=== PATIENT | female | born 1965 | race Caucasian/White ===

== ENCOUNTER 2016-07-05 05:42 | Day surgery (SDC) | payer OTHER ==
[2016-07-05] MEDS ORDERED: Lactated Ringers 1,000 ML IV SCH (06:30)
[2016-07-05] MEDS ORDERED: DIPRIVAN 200 MG/20 ML IV ONE (08:00)
[2016-07-05] MEDS ORDERED: Ketamine HCl 50 MG/ML IV ONE (08:00)
[2016-07-05 08:45] VITALS: BP 140/97; PULSE 93; O2SAT 98
--- NOTE | 2016-07-05 09:26 | OP ---
SURGERY DATE/TIME: 07/05/2016 0705 PREOPERATIVE DIAGNOSES: 1) Diverticulosis. 2) History of diverticular abscess. POSTOPERATIVE DIAGNOSES: 1) Sigmoid diverticulosis. 2) Sigmoid colon polyp x3. PROCEDURE: Colonoscopy. SURGEON: Cortes Ortiz M.D. ANESTHESIA: MAC by Mak Dillard CRNA. ESTIMATED BLOOD LOSS: Minimal. SPECIMENS: One hot forceps polypectomy sigmoid colon polyp and two cold forceps polypectomy sigmoid colon polyp. DESCRIPTION OF PROCEDURE: After informed written consent was obtained, the patient was taken to the endoscopy suite. She underwent monitored anesthesia and digital rectal exam showed normal sphincter tone and no internal lesions. The scope was inserted in the rectum and sequentially the entire colonic mucosa was traversed. The level of cecum was reached and verified with direct visualization of ileocecal valve. Upon withdrawal no obvious mucosal abnormalities were identified until the level of the sigmoid colon. The sigmoid colon did have scattered diverticula throughout the entire length with no obvious bleeding or other suspicious lesions. There were three polyps in the sigmoid colon. The largest was removed with hot forceps. Two very small sessile polyps were removed in their entirety with cold forceps with minimal bleeding. The remainder of the exam was unremarkable. Retroflexion was performed prior to withdrawal. The scope was removed and the patient was transferred to the recovery room in excellent condition. She is advised to follow up for pathology results in a week.
== END 2016-07-05 08:55 | disposition home or self-care (01) ==
LOC: SDC 05:42
PROVIDERS: ATTEND Family Medicine
PROC: 0DBN8ZX Excision of Sigmoid Colon, Via Natural or Artificial Opening Endoscopic, Diagnostic (ICD-10-PCS; principal; 2016-07-05)
PROC: 0DBN8ZZ Excision of Sigmoid Colon, Via Natural or Artificial Opening Endoscopic (ICD-10-PCS; 2016-07-05)
DX: K57.30 Diverticulosis of large intestine without perforation or abscess without bleeding (principal); D12.5 Benign neoplasm of sigmoid colon; I10 Essential (primary) hypertension
CPT/HCPCS: 00810; 36415; 88305; J2704

== ENCOUNTER 2017-03-02 12:44 | Inpatient (IN) | payer OTHER ==
[2017-03-02] MEDS ORDERED: Zofran 4 MG/2 ML VIAL IV PRN (13:17)
[2017-03-02] MEDS ORDERED: Lactated Ringers 1,000 ML IV SCH (13:30)
[2017-03-02] MEDS: Zosyn 3.375GM/100 Ml D5W 3.375 GM/100 ML IVPB IV SCH ×2 (14:11→18:34)
[2017-03-02 14:18] LABS: Mean Cell Volume 97.5 fl (78-100); Mean Corpuscular Hemoglobin 32.3 pg (26-32); Mean Platelet Volume 9.9 fl (6-9.5); Platelet Count 500 K/mm3 (150-450); Red Blood Count 3.62 M/mm3 (4.1-5.4); Red Cell Distribution Width 11.3 % (11.5-14.0); White Blood Count 16.7 K/mm3 (4.0-10.5)
[2017-03-02] MEDS: MORPHINE SULFATE 4 MG INJ IV PRN ×2 (14:26→18:42)
[2017-03-02 14:47] LABS: ALBUMIN 2.2 g/dL (3.4-5.0); ALKALINE PHOSPHATASE 115 U/L (46-116); ANION GAP 15.6 MEQ/L (5-15); BLOOD UREA NITROGEN 4 mg/dL (9-20); CHLORIDE 90 mEq/L (98-107); Carbon Dioxide 27.6 mEq/L (21-32); Glucose 106 MG/DL (70-110); SGOT/AST 43 U/L (15-37); SGPT/ALT 28 U/L (12-78); SODIUM 131 mEq/L (136-145); Total Protein 7.4 gm/dL (6.4-8.2)
[2017-03-02 14:49] LABS: Potassium 2.5 mEq/L (3.5-5.1)
[2017-03-02 15:00] LABS: BAND 14 % (0.0-2.0); Platelet Estimate INCREASED (NORMAL); Total Cells Counted 100
[2017-03-02 15:01] LABS: Hypochromia 1+; Polychromasia RARE
[2017-03-02] MEDS: Lactated Ringers 1,000 ML IV SCH (15:48)
[2017-03-02] MEDS: POTASSIUM CHLORIDE 20 mEq IN WATER 100ML 20 MEQ/100 ML BAG IV SCH ×2 (15:48→17:47)
--- NOTE | 2017-03-02 15:53 | XRAY ---
Indication: Pelvic abscess. Informed consent obtained. Patient placed on the CT table in a prone position. CT scan was performed through the pelvis for localization using cutaneous BBs. The left gluteal region was then prepped and draped in sterile fashion. 2% lidocaine plane used for local anesthesia. Tiny skin incision made. A 18-gauge percutaneous needle was then inserted with the tip advanced into the pelvic abscess using CT guidance. A thin floppy-tipped guidewire was then inserted. The track was then dilated up to 8 [place]. Ultimately a 8.5 [place] pigtail drainage catheter was inserted over the guidewire. The guidewire was removed and the pigtail was formed and locked. Repeat CT imaging demonstrated good catheter tip placement. Small amount of fluid was aspirated and found to be thick brown/red tinged and foul-smelling. This was sent to lab for analysis. Ultimately the catheter was secured using a Gino disc and attached to a NED drainage device. Patient returned to her room in good condition. Impression: Technically successful CT-guided insertion of a percutaneous drainage catheter for a pelvic abscess. No immediate complications. CT DI 12.11
[2017-03-02 16:23] LABS: Bilirubin NEGATIVE (NEGATIVE); Blood NEGATIVE Ery/ul (0-5); COMPLETE URINE MICROSCOPIC? NO; Collection Type CCMS; Glucose NEGATIVE (NEGATIVE); Leukocyte Esterase NEGATIVE (NEGATIVE)
--- NOTE | 2017-03-02 17:26 | PCM.HP ---
History of Present Illness - Chief Complaint Chief Complaint: DIVERTICULITIS AND ABSCESS Date: 03/02/17 History of Present Illness: is a 51 year old female. with history of diverticulitis [facility] and developed worsening left lower quadrant pain and nausea with some chills and presented to the office 9 days ago she was afebrile and wbc of 11k she was started on Augmentin but failed to improve and outpatient CT was arranged that happened today showing diverticulitis with abscess. She was directly admitted and Dr. Caro placed a CT guided drainage catheter with foul smelling pavon drainage and a NED drain. She has been feeling tired and weak with abdominal pain and decreased appetite with no vomiting or nausea. She has had some loose stools no diarrhea or bloody stools. She had a colonoscopy 06/2016. - Review of Systems Constitutional: Chills, Fatigue, No Fever Eyes: No Symptoms Ears, Nose, & Throat: No Symptoms Respiratory: No Cough, No Short Of Breath Cardiac: No Chest Pain, No Edema, No Syncope Abdominal/Gastrointestinal: Abdominal Pain, Nausea, No Vomiting, No Diarrhea Genitourinary Symptoms: No Dysuria Musculoskeletal: No Back Pain, No Neck Pain Skin: No Rash Neurological: No Dizziness, No Focal Weakness, No Sensory Changes Psychological: No Symptoms Endocrine: No Symptoms Hematologic/Lymphatic: No Symptoms Immunological/Allergic: No Symptoms Medications & Allergies Home Medications: Home Medication List Fluoxetine HCl [Prozac] 20 mg PO DAILY 07/05/16 [History Confirmed 03/02/17] Lisinopril 5 mg PO DAILY 03/02/17 [History Confirmed 03/02/17] Allergies/Adverse Reactions: Allergies Allergy/AdvReac Type Severity Reaction Status Date / Time No Known Drug Allergies Allergy Unverified 03/02/17 14:11 - Past Medical History Past Medical History: Yes Neurological History: No Pertinent History ENT History: No Pertinent History Cardiac History: Hypertension Respiratory History: No Pertinent History Endocrine Medical History: No Pertinent History Musculoskelatal History: No Pertinent History GI Medical History: Diverticulosis, Hernia History: No Pertinent History Pyscho-Social History: Depression Reproductive Disorders: No Pertinent History Comment: pt states She was in the hospital in may and was told she has diverticulitis with a small abscess. in [facility] - Female History Are you now?: No - Past Surgical History Past Surgical History: Yes Neuro Surgical History: No Pertinent History Cardiac History: No Pertinent History Respiratory Surgery: No Pertinent History GI Surgical History: Other (colonoscopy 06/2016 Dr. Ortiz) Genitourinary Surgical Hx: No Pertinent History Musculskeletal Surgical Hx: Other Female Surgical History: Dilation & Curettage Other Surgical History: mandible surgery, uterine ablation - Social History Smoking Status: Current every day smoker How long have you smoked: 30 YEARS Exposure to second hand smoke: No Alcohol: Daily (last drink 6 days ago) Drug Use: none Significant Family History: other (mother with lymphoma) - Physical Exam Vital Signs: Vital Signs - 24 hr Temp Pulse Resp BP Pulse Ox 03/02/17 15:47 98.7 F 92 H 20 98/58 98 03/02/17 13:21 98.8 F 93 H 20 111/61 97 03/02/17 13:08 98.8 F 93 H 20 111/61 97 General Appearance: no apparent distress, alert Neurologic Exam: alert, oriented x 3, cooperative, normal mood/affect, nml cerebellar function, nml station & gait, sensation nml, No motor deficits Eye Exam: PERRL/EOMI, eyes nml inspection Ears, Nose, Throat Exam: normal ENT inspection, pharynx normal, moist mucous membranes Neck Exam: normal inspection, non-tender, supple, full range of motion Respiratory Exam: normal breath sounds, lungs clear, No respiratory distress Cardiovascular Exam: regular rate/rhythm, normal heart sounds, normal peripheral pulses Gastrointestinal/Abdomen Exam: soft, normal bowel sounds, tenderness, No distention, No mass, No guarding, No rebound Back Exam: normal inspection, normal range of motion, No CVA tenderness, No vertebral tenderness Extremity Exam: normal inspection, normal range of motion, pelvis stable Skin Exam: normal color, warm, dry, No rash Lymphatic Exam: No adenopathy Results - Labs Lab/Micro Results: Lab Results-Last 24 Hours 03/02/17 03/02/17 03/02/17 Range/Units 14:10 14:10 15:45 WBC 16.7 H (4.0-10.5) K/mm3 RBC 3.62 L (4.1-5.4) M/mm3 Hgb 11.7 L (12.0-16.0) gm/dl Hct 35.3 (35-47) % MCV 97.5 (78-100) fl MCH 32.3 H (26-32) pg MCHC 33.1 (32-36) g/dl RDW 11.3 L (11.5-14.0) % Plt Count 500 H (150-450) K/mm3 MPV 9.9 H (6-9.5) fl Segmented Neutrophils 61 (36.0-66.0) % Band Neutrophils 14 H (0.0-2.0) % Lymphocytes (Manual) 15 L (24-44) % Monocytes (Manual) 10 (0.0-12.0) % Differential Comment ABNORMAL Platelet Estimate INCREASED (NORMAL) Polychromasia RARE Hypochromasia 1+ Sodium 131 L (136-145) mEq/L Potassium 2.5 L* (3.5-5.1) mEq/L Chloride 90 L (98-107) mEq/L Carbon Dioxide 27.6 (21-32) mEq/L Anion Gap 15.6 H (5-15) MEQ/L BUN 4 L (9-20) mg/dL Creatinine 0.53 L (0.55-1.30) mg/dl Estimated GFR > 60 ML/MIN Glucose 106 (70-110) MG/DL Calcium 9.0 (8.5-10.1) mg/dL Total Bilirubin 0.30 (0.2-1.0) mg/dL AST 43 H (15-37) U/L ALT 28 (12-78) U/L Alkaline Phosphatase 115 (46-116) U/L Serum Total Protein 7.4 (6.4-8.2) gm/dL Albumin 2.2 L (3.4-5.0) g/dL Ur Collection Type CCMS Urine Color YELLOW (YELLOW) Urine Appearance CLEAR (CLEAR) Urine pH 7.0 (5-6) Ur Specific [place] 1.005 (1.005-1.025) Urine Protein NEGATIVE (Negative) Urine Ketones NEGATIVE (NEGATIVE) Urine Blood NEGATIVE (0-5) Jorge/ul Urine Nitrite NEGATIVE (NEGATIVE) Urine Bilirubin NEGATIVE (NEGATIVE) Urine Urobilinogen NORMAL (0-1) mg/dL Ur Leukocyte Esterase NEGATIVE (NEGATIVE) Urine Glucose NEGATIVE (NEGATIVE) mg/dL Specimen Received 03-02-17 3620 - Radiology Impressions Radiology Exams & Impressions: Radiology Procedures Category Date Time Status CT GUIDED ABSCESS DRAINAGE [CT] Urgent Exams 03/02/17 14:25 Completed Assessment/Plan (1) Diverticulitis of large intestine with abscess Current Visit: Yes Status: Acute Assessment & Plan: This is her second severe recurrence 1st was at [facility] 04/2016 records from that stay are placed on chart she had colonoscopy with Dr. Ortiz 06/2016. Dr. Caro was able to successfully place a drainage catheter in the abscess with thick pavon foul smelling fluid that is sent for culture she currently has a NED drain in place with approximately 25cc of drainage since arrival back on the floor she looks well will await surgery evaluation before advancing the diet continue zosyn IV replace K Code(s): K57.20 - DVTRCLI OF LG INT W PERFORATION AND ABSCESS W/O BLEEDING (2) Hypokalemia Current Visit: Yes Status: Acute Code(s): E87.6 - HYPOKALEMIA (3) Pulmonary nodule Current Visit: Yes Status: Acute Assessment & Plan: unchanged 4mm from CT 04/2016 at [facility] Code(s): R91.1 - SOLITARY PULMONARY NODULE (4) Hypertension Current Visit: Yes Status: Acute Code(s): I10 - ESSENTIAL (PRIMARY) HYPERTENSION
[2017-03-02] MEDS ORDERED: Ativan 2 MG/1 ML VIAL IV PRN (17:42)
[2017-03-03] MEDS: Zosyn 3.375GM/100 Ml D5W 3.375 GM/100 ML IVPB IV SCH ×5 (00:37→23:22)
[2017-03-03] MEDS: POTASSIUM CHLORIDE 20 mEq IN WATER 100ML 20 MEQ/100 ML BAG IV SCH ×2 (01:31→02:55)
[2017-03-03] MEDS: Lactated Ringers 1,000 ML IV SCH ×2 (04:01→16:57)
[2017-03-03 07:46] LABS: Mean Cell Volume 98.5 fl (78-100); Mean Corpuscular Hemoglobin 32.9 pg (26-32); Mean Platelet Volume 9.7 fl (6-9.5); Platelet Count 477 K/mm3 (150-450); Red Blood Count 3.34 M/mm3 (4.1-5.4); Red Cell Distribution Width 11.5 % (11.5-14.0); White Blood Count 17.6 K/mm3 (4.0-10.5)
[2017-03-03] MEDS: MORPHINE SULFATE 4 MG INJ IV PRN ×3 (07:59→16:58)
[2017-03-03 08:10] LABS: BLOOD UREA NITROGEN 4 mg/dL (9-20); CHLORIDE 96 mEq/L (98-107); Carbon Dioxide 29.4 mEq/L (21-32); Glucose 122 MG/DL (70-110); SODIUM 134 mEq/L (136-145)
[2017-03-03 08:43] LABS: Potassium 2.9 mEq/L (3.5-5.1)
[2017-03-03] MEDS ORDERED: Magnesium 1 Gm / 100 Ml D5W*** 100 ML IV SCH (09:00)
[2017-03-03] MEDS ORDERED: POTASSIUM CHLORIDE 20 mEq IN WATER 100ML 20 MEQ/100 ML BAG IV SCH (09:00)
[2017-03-03] MEDS ORDERED: Potassium Chloride 40 MEQ/20 ML VIAL 40 MEQ, Magnesium Sulfate 1 GM/2 ML VIAL*** 2 GM i... IV SCH ×3 (09:00)
[2017-03-03] MEDS ORDERED: Zestril 5 MG PO SCH (10:00)
--- NOTE | 2017-03-03 10:57 | PCM.NOTE ---
Date and Time: 03/03/17 1052 Subjective Assessment: unfortunately at around 5 am her mother who was dying from cancer passsed away at the local prison just a 1/4 mile away so we did allow her to leave for about 30 mins to say goodbye to her before she was taken to the home and she has returned now. She is ambulating on her own. Her pain in her abdomen is significantly improved today just some pain still down in her left lower quadrant but only mild. She has pain in her left buttocks and hip and lateral thigh from the drainage tube insertion. she has no nausea no diarrhea no bloody stools. Objective Exam General Appearance: no apparent distress, alert Neurologic Exam: alert, oriented x 3, cooperative, normal mood/affect, nml cerebellar function, sensation nml, No motor deficits Skin Exam: normal color, warm, dry Eye Exam: PERRL, EOMI, eyes nml inspection Ears, Nose, Throat Exam: normal ENT inspection, pharynx normal, moist mucous membranes Neck Exam: normal inspection, non-tender, supple, full range of motion Respiratory Exam: normal breath sounds, lungs clear, No respiratory distress Cardiovascular Exam: regular rate/rhythm, normal heart sounds Gastrointestinal/Abdomen Exam: soft, normal bowel sounds, tenderness (left lower quadrant tenderness NED drain with some brown/bloody fluid), No mass, No guarding, No rebound Extremity Exam: normal inspection, normal range of motion Back Exam: normal inspection, normal range of motion, No CVA tenderness, No vertebral tenderness Pelvic Exam: deferred Rectal Exam: deferred OBJECTIVE DATA Vital Signs: Vital Signs - 24 hr Temp Pulse Resp BP Pulse Ox 03/03/17 06:48 97.9 F 98 H 16 95/50 95 03/03/17 04:00 99.1 F 102 H 15 90/50 93 L 03/02/17 23:54 99.5 F 105 H 15 89/54 93 L 03/02/17 19:45 99.4 F 100 H 20 94/55 93 L 03/02/17 15:47 98.7 F 92 H 20 98/58 98 03/02/17 13:21 98.8 F 93 H 20 111/61 97 03/02/17 13:08 98.8 F 93 H 20 111/61 97 Pain Assessment - Last Documented Pain Intensity 4 Pain Scale Used 0-10 Pain Scale Intake and Output: Intake & Output 02/28/17 03/01/17 03/02/17 03/03/17 11:59 11:59 11:59 11:59 Intake Total 2385 Output Total 675 Balance 1710 Weight 56.699 kg Lab Results: Lab Results-Last 24 Hours 03/02/17 03/02/17 03/02/17 Range/Units 14:10 14:10 15:45 WBC 16.7 H (4.0-10.5) K/mm3 RBC 3.62 L (4.1-5.4) M/mm3 Hgb 11.7 L (12.0-16.0) gm/dl Hct 35.3 (35-47) % MCV 97.5 (78-100) fl MCH 32.3 H (26-32) pg MCHC 33.1 (32-36) g/dl RDW 11.3 L (11.5-14.0) % Plt Count 500 H (150-450) K/mm3 MPV 9.9 H (6-9.5) fl Segmented Neutrophils 61 (36.0-66.0) % Band Neutrophils 14 H (0.0-2.0) % Lymphocytes (Manual) 15 L (24-44) % Monocytes (Manual) 10 (0.0-12.0) % Differential Comment ABNORMAL Platelet Estimate INCREASED (NORMAL) Polychromasia RARE Hypochromasia 1+ Sodium 131 L (136-145) mEq/L Potassium 2.5 L* (3.5-5.1) mEq/L Chloride 90 L (98-107) mEq/L Carbon Dioxide 27.6 (21-32) mEq/L Anion Gap 15.6 H (5-15) MEQ/L BUN 4 L (9-20) mg/dL Creatinine 0.53 L (0.55-1.30) mg/dl Estimated GFR > 60 ML/MIN Glucose 106 (70-110) MG/DL Calcium 9.0 (8.5-10.1) mg/dL Magnesium (1.8-2.4) mg/dL Total Bilirubin 0.30 (0.2-1.0) mg/dL AST 43 H (15-37) U/L ALT 28 (12-78) U/L Alkaline Phosphatase 115 (46-116) U/L Serum Total Protein 7.4 (6.4-8.2) gm/dL Albumin 2.2 L (3.4-5.0) g/dL Ur Collection Type CCMS Urine Color YELLOW (YELLOW) Urine Appearance CLEAR (CLEAR) Urine pH 7.0 (5-6) Ur Specific [place] 1.005 (1.005-1.025) Urine Protein NEGATIVE (Negative) Urine Ketones NEGATIVE (NEGATIVE) Urine Blood NEGATIVE (0-5) Jorge/ul Urine Nitrite NEGATIVE (NEGATIVE) Urine Bilirubin NEGATIVE (NEGATIVE) Urine Urobilinogen NORMAL (0-1) mg/dL Ur Leukocyte Esterase NEGATIVE (NEGATIVE) Urine Glucose NEGATIVE (NEGATIVE) mg/dL Specimen Received 03-02-17 1620 03/02/17 03/03/17 03/03/17 Range/Units 22:02 07:39 07:39 WBC 17.6 H (4.0-10.5) K/mm3 RBC 3.34 L (4.1-5.4) M/mm3 Hgb 11.0 L (12.0-16.0) gm/dl Hct 32.9 L (35-47) % MCV 98.5 (78-100) fl MCH 32.9 H (26-32) pg MCHC 33.4 (32-36) g/dl RDW 11.5 (11.5-14.0) % Plt Count 477 H (150-450) K/mm3 MPV 9.7 H (6-9.5) fl Segmented Neutrophils (36.0-66.0) % Band Neutrophils (0.0-2.0) % Lymphocytes (Manual) (24-44) % Monocytes (Manual) (0.0-12.0) % Differential Comment Platelet Estimate (NORMAL) Polychromasia Hypochromasia Sodium 134 L (136-145) mEq/L Potassium 3.0 L* 2.9 L* (3.5-5.1) mEq/L Chloride 96 L (98-107) mEq/L Carbon Dioxide 29.4 (21-32) mEq/L Anion Gap 11.0 (5-15) MEQ/L BUN 4 L (9-20) mg/dL Creatinine 0.68 (0.55-1.30) mg/dl Estimated GFR > 60 ML/MIN Glucose 122 H (70-110) MG/DL Calcium 8.1 L (8.5-10.1) mg/dL Magnesium (1.8-2.4) mg/dL Total Bilirubin (0.2-1.0) mg/dL AST (15-37) U/L ALT (12-78) U/L Alkaline Phosphatase (46-116) U/L Serum Total Protein (6.4-8.2) gm/dL Albumin (3.4-5.0) g/dL Ur Collection Type Urine Color (YELLOW) Urine Appearance (CLEAR) Urine pH (5-6) Ur Specific [place] (1.005-1.025) Urine Protein (Negative) Urine Ketones (NEGATIVE) Urine Blood (0-5) Jorge/ul Urine Nitrite (NEGATIVE) Urine Bilirubin (NEGATIVE) Urine Urobilinogen (0-1) mg/dL Ur Leukocyte Esterase (NEGATIVE) Urine Glucose (NEGATIVE) mg/dL Specimen Received 03/03/17 Range/Units 07:39 WBC (4.0-10.5) K/mm3 RBC (4.1-5.4) M/mm3 Hgb (12.0-16.0) gm/dl Hct (35-47) % MCV (78-100) fl MCH (26-32) pg MCHC (32-36) g/dl RDW (11.5-14.0) % Plt Count (150-450) K/mm3 MPV (6-9.5) fl Segmented Neutrophils (36.0-66.0) % Band Neutrophils (0.0-2.0) % Lymphocytes (Manual) (24-44) % Monocytes (Manual) (0.0-12.0) % Differential Comment Platelet Estimate (NORMAL) Polychromasia Hypochromasia Sodium (136-145) mEq/L Potassium (3.5-5.1) mEq/L Chloride (98-107) mEq/L Carbon Dioxide (21-32) mEq/L Anion Gap (5-15) MEQ/L BUN (9-20) mg/dL Creatinine (0.55-1.30) mg/dl Estimated GFR ML/MIN Glucose (70-110) MG/DL Calcium (8.5-10.1) mg/dL Magnesium 1.3 L (1.8-2.4) mg/dL Total Bilirubin (0.2-1.0) mg/dL AST (15-37) U/L ALT (12-78) U/L Alkaline Phosphatase (46-116) U/L Serum Total Protein (6.4-8.2) gm/dL Albumin (3.4-5.0) g/dL Ur Collection Type Urine Color (YELLOW) Urine Appearance (CLEAR) Urine pH (5-6) Ur Specific [place] (1.005-1.025) Urine Protein (Negative) Urine Ketones (NEGATIVE) Urine Blood (0-5) Jorge/ul Urine Nitrite (NEGATIVE) Urine Bilirubin (NEGATIVE) Urine Urobilinogen (0-1) mg/dL Ur Leukocyte Esterase (NEGATIVE) Urine Glucose (NEGATIVE) mg/dL Specimen Received Radiology Exams: Radiology Procedures Category Date Time Status CT GUIDED ABSCESS DRAINAGE [CT] Urgent Exams 03/02/17 14:25 Completed Assessment/Plan (1) Diverticulitis of large intestine with abscess Current Visit: Yes Status: Acute Assessment & Plan: continue the zosyn has NED drain in place had 60 mL out last night culture pending Gen Surgery has been consulted and npo at this time per their recommendations and will advance diet when ok with surgery. She currently has minimal pain and no nausea and was tolerating po prior to admission Code(s): K57.20 - DVTRCLI OF LG INT W PERFORATION AND ABSCESS W/O BLEEDING (2) Hypokalemia Current Visit: Yes Status: Acute Assessment & Plan: replacing K and mag Code(s): E87.6 - HYPOKALEMIA (3) Hypertension Current Visit: Yes Status: Acute Assessment & Plan: hold lisinopril with the lower bp Code(s): I10 - ESSENTIAL (PRIMARY) HYPERTENSION (4) Hypomagnesemia Current Visit: Yes Status: Acute Code(s): E83.42 - HYPOMAGNESEMIA
[2017-03-03] MEDS: Prozac 20 MG PO SCH (10:59)
[2017-03-03 15:30] LABS: MAGNESIUM 2.2 mg/dL (1.8-2.4); Potassium 3.2 mEq/L (3.5-5.1)
[2017-03-03] MEDS ORDERED: Klor Con 10 MEQ PO ONE (15:50)
[2017-03-04] MEDS: Zosyn 3.375GM/100 Ml D5W 3.375 GM/100 ML IVPB IV SCH ×4 (05:08→23:18)
[2017-03-04] MEDS: MORPHINE SULFATE 4 MG INJ IV PRN ×2 (05:12→21:21)
[2017-03-04 05:51] LABS: ANION GAP 8.7 MEQ/L (5-15); BLOOD UREA NITROGEN 2 mg/dL (9-20); CHLORIDE 97 mEq/L (98-107); Carbon Dioxide 29.9 mEq/L (21-32); Glucose 138 MG/DL (70-110); MAGNESIUM 1.7 mg/dL (1.8-2.4); Mean Platelet Volume 9.9 fl (6-9.5); Platelet Count 461 K/mm3 (150-450); Potassium 3.3 mEq/L (3.5-5.1); Red Blood Count 3.16 M/mm3 (4.1-5.4); Red Cell Distribution Width 11.4 % (11.5-14.0); SODIUM 132 mEq/L (136-145); White Blood Count 12.5 K/mm3 (4.0-10.5)
[2017-03-04 05:53] LABS: Mean Corpuscular Hemoglobin 32.2 pg (26-32)
[2017-03-04 07:06] LABS: BAND 3 % (0.0-2.0); Platelet Estimate NORMAL (NORMAL); Total Cells Counted 100
[2017-03-04 07:07] LABS: Toxic Granulation 2+
[2017-03-04] MEDS: Lactated Ringers 1,000 ML IV SCH ×2 (07:22→21:21)
--- NOTE | 2017-03-04 09:28 | PCM.NOTE ---
Date and Time: 03/04/17923 Subjective Assessment: she is feeling better today she has eaten full liquid diet with no problems she has pain in her left hip and some numbness in the lateral left leg no weakness but she states just feels funny. There continues to be brown bloody drainage in the NED. Her abdominal pain is nearly gone. no lightheadedness or dizziness. Objective Exam General Appearance: no apparent distress, alert Neurologic Exam: alert, oriented x 3, cooperative, normal mood/affect, nml cerebellar function, sensation nml, No motor deficits Skin Exam: normal color, warm, dry Eye Exam: PERRL, EOMI, eyes nml inspection Ears, Nose, Throat Exam: normal ENT inspection, pharynx normal, moist mucous membranes Neck Exam: normal inspection, non-tender, supple, full range of motion Respiratory Exam: normal breath sounds, lungs clear, No respiratory distress Cardiovascular Exam: regular rate/rhythm, normal heart sounds Gastrointestinal/Abdomen Exam: soft, tenderness (minimal left lower quadrant), No mass Extremity Exam: normal inspection, normal range of motion Back Exam: normal inspection, normal range of motion, No CVA tenderness, No vertebral tenderness Pelvic Exam: deferred Rectal Exam: deferred OBJECTIVE DATA Vital Signs: Vital Signs - 24 hr Temp Pulse Resp BP Pulse Ox 03/04/17 07:22 80 18 80/56 94 L 03/04/17 03:40 98.4 F 87 18 85/41 94 L 03/03/17 23:43 97.8 F 89 20 84/49 94 L 03/03/17 19:39 98.3 F 90 16 88/60 94 L 03/03/17 15:53 98.3 F 92 H 16 96/69 93 L 03/03/17 11:25 98.3 F 93 H 16 81/50 95 Pain Assessment - Last Documented Pain Intensity 5 Pain Scale Used 0-10 Pain Scale Intake and Output: Intake & Output 03/01/17 03/02/17 03/03/17 03/04/17 11:59 11:59 11:59 11:59 Intake Total 2385 3638 Output Total 675 5 Balance 1710 3633 Weight 56.699 kg Lab Results: Lab Results-Last 24 Hours 03/03/17 03/04/17 03/04/17 Range/Units 15:10 05:28 05:28 WBC 12.5 H (4.0-10.5) K/mm3 RBC 3.16 L (4.1-5.4) M/mm3 Hgb 10.2 L (12.0-16.0) gm/dl Hct 31.6 L (35-47) % MCV 100.0 (78-100) fl MCH 32.2 H (26-32) pg MCHC 32.3 (32-36) g/dl RDW 11.4 L (11.5-14.0) % Plt Count 461 H (150-450) K/mm3 MPV 9.9 H (6-9.5) fl Segmented Neutrophils 82 H (36.0-66.0) % Band Neutrophils 3 H (0.0-2.0) % Lymphocytes (Manual) 11 L (24-44) % Monocytes (Manual) 4 (0.0-12.0) % Differential Comment NORMAL Toxic Granulation 2+ Platelet Estimate NORMAL (NORMAL) Sodium 132 L (136-145) mEq/L Potassium 3.2 L 3.3 L (3.5-5.1) mEq/L Chloride 97 L (98-107) mEq/L Carbon Dioxide 29.9 (21-32) mEq/L Anion Gap 8.7 (5-15) MEQ/L BUN 2 L (9-20) mg/dL Creatinine 0.62 (0.55-1.30) mg/dl Estimated GFR > 60 ML/MIN Glucose 138 H (70-110) MG/DL Calcium 8.2 L (8.5-10.1) mg/dL Magnesium 2.2 1.7 L (1.8-2.4) mg/dL Radiology Exams: Radiology Procedures Category Date Time Status CT GUIDED ABSCESS DRAINAGE [CT] Urgent Exams 03/02/17 14:25 Completed Assessment/Plan (1) Diverticulitis of large intestine with abscess Current Visit: Yes Status: Acute Assessment & Plan: with CT guided drain placed by IR culture + for E. coli given its location and the drainage and that she was on Augmentin for over 1 week prior to presentation will continue the zosyn for now over concern of polymicrobial infection continue full liquid diet appreciate surgery recommendations. Code(s): K57.20 - DVTRCLI OF LG INT W PERFORATION AND ABSCESS W/O BLEEDING (2) Hypokalemia Current Visit: Yes Status: Acute Code(s): E87.6 - HYPOKALEMIA (3) Hypertension Current Visit: Yes Status: Acute Assessment & Plan: low bp now asymptomatic off the lisinopril now Code(s): I10 - ESSENTIAL (PRIMARY) HYPERTENSION (4) Hypomagnesemia Current Visit: Yes Status: Acute Code(s): E83.42 - HYPOMAGNESEMIA
[2017-03-04] MEDS: Klor Con 10 MEQ PO SCH ×4 (10:13→21:21)
[2017-03-04] MEDS: MAG-OX 400 PO SCH ×2 (10:13→21:21)
[2017-03-04] MEDS: Prozac 20 MG PO SCH (10:13)
[2017-03-05] MEDS: Zosyn 3.375GM/100 Ml D5W 3.375 GM/100 ML IVPB IV SCH ×4 (05:14→23:22)
[2017-03-05 05:53] LABS: Mean Platelet Volume 9.5 fl (6-9.5); Platelet Count 474 K/mm3 (150-450); Red Blood Count 3.06 M/mm3 (4.1-5.4); Red Cell Distribution Width 11.4 % (11.5-14.0); White Blood Count 8.2 K/mm3 (4.0-10.5)
[2017-03-05 06:06] LABS: Mean Corpuscular Hemoglobin 32.3 pg (26-32)
[2017-03-05 06:21] LABS: ANION GAP 9.3 MEQ/L (5-15); BLOOD UREA NITROGEN 2 mg/dL (9-20); CHLORIDE 98 mEq/L (98-107); Carbon Dioxide 28.4 mEq/L (21-32); Glucose 105 MG/DL (70-110); MAGNESIUM 1.6 mg/dL (1.8-2.4); Potassium 3.1 mEq/L (3.5-5.1); SODIUM 133 mEq/L (136-145)
[2017-03-05 07:21] LABS: Platelet Estimate NORMAL (NORMAL); Total Cells Counted 100; Toxic Granulation 1+
--- NOTE | 2017-03-05 07:37 | CONS ---
CONSULT DATE: 03/02/2017 REASON FOR CONSULT: Diverticulitis with abscess. HISTORY: A 51 year-old presents had been feeling fairly run down. I believe she had been at [facility] just a few weeks earlier. She now has an enlarging pericolic abscess that had been drained subsequently by radiology. It was very foul. It had intense smell to it and she was seen about six hours later by myself and it was already starting to clear. It had a pink tinged to it. There was mg fluid in the NED itself. She was also seen yesterday. She has looked better every day. The drainage looked very successful. Her CT scan was reviewed. She clearly has working diagnosis of diverticulitis. She has been started on diet. She is advancing on it. Her abdomen is totally soft. She is alert, oriented and afebrile. Cultures are not back yet. IMPRESSION AND PLAN: As soon as her cultures are back and antibiotics are adjusted appropriately she probably could go home. We would to scope her in about six weeks to make sure this is diverticulitis and there is consideration of possibly a semi-elective resection of this area in the future or it may be able just be watched. It is indeterminate at this time.
--- NOTE | 2017-03-05 08:21 | PCM.NOTE ---
Date and Time: 03/05/17813 Subjective Assessment: feeling better today still some pain in hte left hip tolerating po well no fevers Objective Exam General Appearance: no apparent distress, alert Neurologic Exam: alert, oriented x 3, cooperative, normal mood/affect, nml cerebellar function, sensation nml, No motor deficits Skin Exam: normal color, warm, dry Eye Exam: PERRL, EOMI, eyes nml inspection Ears, Nose, Throat Exam: normal ENT inspection, pharynx normal, moist mucous membranes Neck Exam: normal inspection, non-tender, supple, full range of motion Respiratory Exam: normal breath sounds, lungs clear, No respiratory distress Cardiovascular Exam: regular rate/rhythm, normal heart sounds Gastrointestinal/Abdomen Exam: soft, other (stanislav with mg/pink drainage), No tenderness, No mass Extremity Exam: normal inspection, normal range of motion Back Exam: normal inspection, normal range of motion, No CVA tenderness, No vertebral tenderness Pelvic Exam: deferred Rectal Exam: deferred OBJECTIVE DATA Vital Signs: Vital Signs - 24 hr Temp Pulse Resp BP Pulse Ox 03/05/17 07:47 98.5 F 77 20 116/65 93 L 03/05/17 03:29 97.7 F 71 18 124/62 94 L 03/05/17 00:00 97.8 F 74 16 99/53 92 L 03/04/17 19:23 98.4 F 88 18 96/56 96 03/04/17 16:00 99.1 F 83 16 95/53 97 03/04/17 11:45 99 F 87 18 88/57 97 Pain Assessment - Last Documented Pain Intensity 5 Pain Scale Used 0-10 Pain Scale Intake and Output: Intake & Output 03/02/17 03/03/17 03/04/17 03/05/17 11:59 11:59 11:59 11:59 Intake Total 9282 3638 3162 Output Total 675 5 10 Balance 1710 3633 3152 Weight 56.699 kg Lab Results: Lab Results-Last 24 Hours 03/05/17 03/05/17 Range/Units 05:35 05:35 WBC 8.2 (4.0-10.5) K/mm3 RBC 3.06 L (4.1-5.4) M/mm3 Hgb 9.9 L (12.0-16.0) gm/dl Hct 30.6 L (35-47) % MCV 100.0 (78-100) fl MCH 32.3 H (26-32) pg MCHC 32.4 (32-36) g/dl RDW 11.4 L (11.5-14.0) % Plt Count 474 H (150-450) K/mm3 MPV 9.5 (6-9.5) fl Segmented Neutrophils 82 H (36.0-66.0) % Lymphocytes (Manual) 10 L (24-44) % Monocytes (Manual) 8 (0.0-12.0) % Differential Comment NORMAL Toxic Granulation 1+ Platelet Estimate NORMAL (NORMAL) Sodium 133 L (136-145) mEq/L Potassium 3.1 L (3.5-5.1) mEq/L Chloride 98 (98-107) mEq/L Carbon Dioxide 28.4 (21-32) mEq/L Anion Gap 9.3 (5-15) MEQ/L BUN 2 L (9-20) mg/dL Creatinine 0.59 (0.55-1.30) mg/dl Estimated GFR > 60 ML/MIN Glucose 105 (70-110) MG/DL Calcium 8.1 L (8.5-10.1) mg/dL Magnesium 1.6 L (1.8-2.4) mg/dL Multi-Disciplinary Progress Notes: Multi-Disciplinary Progress Notes 03/04/17 11:37 Pharmacy Note by Jadiel Shah PATIENT MEDICATION TEACHING/COUNSELING PERFORMED ON THE FOLLOWING MEDICATIONS: ZOSYN FOR DIVERTICULITS ABSCESS AND POLYMICROBIAL USE. POTASSIUM AND MAGNESIUM FOR ELECTROLYTE LEVELS; HYPOKALEMIA AND HYPOMAGNESIUM DISCUSSED MORPHINE FOR PAIN, PT COMPLAINING OF MILD PAIN FROM CATHETER INSERTED IN COLON?? PAIN RATING OF 3-4. DISCUSSED USES AND SIDE EFFECTS OF EACH MEDICATION. Yulissa SHAH Initialized on 03/04/17 11:37 - END OF NOTE Assessment/Plan (1) Diverticulitis of large intestine with abscess Current Visit: Yes Status: Acute Assessment & Plan: we are working on getting the sensitivities to the enterococcus to plan for outpatient antibiotics with iv vs po combination STANISLAV still with purulent drainage at this time will continue for now. Dr. Esteban of surgery plans colonoscopy in 4 to 6 weeks replace and recheck lytes Code(s): K57.20 - DVTRCLI OF LG INT W PERFORATION AND ABSCESS W/O BLEEDING (2) Hypokalemia Current Visit: Yes Status: Acute Code(s): E87.6 - HYPOKALEMIA (3) Hypertension Current Visit: Yes Status: Acute Code(s): I10 - ESSENTIAL (PRIMARY) HYPERTENSION (4) Hypomagnesemia Current Visit: Yes Status: Acute Code(s): E83.42 - HYPOMAGNESEMIA
[2017-03-05] MEDS: MORPHINE SULFATE 4 MG INJ IV PRN ×2 (08:40→22:06)
[2017-03-05] MEDS: Prozac 20 MG PO SCH (09:37)
[2017-03-05] MEDS: Klor Con 10 MEQ PO SCH ×3 (09:37→22:06)
[2017-03-05] MEDS: MAG-OX 400 PO SCH ×2 (09:37→22:06)
[2017-03-06] MEDS: Zosyn 3.375GM/100 Ml D5W 3.375 GM/100 ML IVPB IV SCH ×2 (05:05→12:06)
[2017-03-06] MEDS ORDERED: Sodium Chloride 0.9% 10 ML FLUSH Syringe IV SCH (06:00)
[2017-03-06 06:03] LABS: Mean Cell Volume 100.3 fl (78-100); Mean Corpuscular Hemoglobin 32.5 pg (26-32); Platelet Count 554 K/mm3 (150-450); Red Blood Count 3.16 M/mm3 (4.1-5.4); Red Cell Distribution Width 11.4 % (11.5-14.0); White Blood Count 7.1 K/mm3 (4.0-10.5)
[2017-03-06 06:04] LABS: ANION GAP 7.6 MEQ/L (5-15); BLOOD UREA NITROGEN 1 mg/dL (9-20); CHLORIDE 102 mEq/L (98-107); Carbon Dioxide 29.4 mEq/L (21-32); Glucose 104 MG/DL (70-110); MAGNESIUM 1.8 mg/dL (1.8-2.4); Potassium 4.8 mEq/L (3.5-5.1); SODIUM 134 mEq/L (136-145)
[2017-03-06 08:06] LABS: Total Cells Counted 100
[2017-03-06 08:07] LABS: ANISOCYTOSIS 1+; Platelet Estimate INCREASED (NORMAL); Poikilocytosis 1+
--- NOTE | 2017-03-06 08:41 | XRAY ---
Indication: Follow-up diverticulitis with abscess. Multiple contiguous axial images obtained through the abdomen and pelvis using 80 cc Isovue 370 contrast. Oral contrast also given. Comparison: March 02, 2017 Lung bases demonstrates interval developing mild/moderate right basilar effusion with mild right lower lobe compressive atelectasis. Left lung bases clear. Heart is not enlarged. Contrasted stomach and bowel loops again appears nonobstructed. Scattered descending/sigmoid diverticulosis. Degree of sigmoid and rectal bowel wall thickening has improved with mild residual. New left gluteal percutaneous drainage catheter in situ. Previous multiloculated fluid collections have cleared. No free fluid/air. Gallbladder now demonstrates small pericholecystic fluid without gallstones. Also new mild biliary tree distention. Remaining liver, pancreas, spleen, adrenal glands, kidneys, ureters, bladder, and uterus appear unremarkable. Stable mild aortoiliac calcifications and small subcentimeter periaortic nodes. No AAA or pathologic retroperitoneal lymphadenopathy. Osseous structures intact again with lumbosacral junction degenerative disc disease. Impression: 1. New left gluteal percutaneous drainage catheter with interval clearing of previous abscesses. 2. Improved colitis/proctitis with mild residual. 3. New pericholecystic fluid without gallstones and new biliary distention. Gallbladder sonogram may yield further information. 4. New right lung base pleural effusion/atelectasis. 5. Stable colonic diverticulosis. CT DI 18.77
[2017-03-06] MEDS: Klor Con 10 MEQ PO SCH (09:07)
[2017-03-06] MEDS: MAG-OX 400 PO SCH (09:09)
[2017-03-06 11:31] VITALS: BP 103/64; PULSE 74; O2SAT 93
--- NOTE | 2017-03-06 13:43 | PCM.DCORD ---
- Discharge Discharge Date: 03/06/17 Disposition: Home, Self-Care Condition: Stable Prescriptions: New Metronidazole 500 mg [Flagyl 500 MG] 500 mg PO TID #30 tablet Levofloxacin [Levofloxacin 500 MG Tablet] 500 mg PO DAILY #10 tablet Linezolid 600 mg PO BID #28 tablet Discontinued Fluoxetine HCl [Prozac] 20 mg PO DAILY Lisinopril 5 mg PO DAILY Follow up with: KRISSY DOWNEY [Primary Care Provider] - 03/13/17 10:00 am BLADIMIR BRINK [ACTIVE STAFF] - 1 Week Forms: Patient Portal Information
--- NOTE | 2017-03-06 21:24 | PCM.DS ---
Discharge Summary Date of Admission: 03/03/17 10:51 Date of Discharge: 03/06/17 Admitting Physician: KRISSY DOWNEY Consults: Consults on Case 03/02/17 13:20 Consult Surgery Primary Care Provider: KRISSY DOWNEY Allergies Allergies No Known Drug Allergies Allergy (Unverified 03/02/17 14:11) Hospital Summary - Hospital Course Hospital Course: Mr. Lawrence had an episode of diverticulitis treated last April at [facility] in [facility]. She did well after this and subsequently developed another episode that was initially treated with outpatient antibiotics on Augmentin for over 1 week but symptoms persisted and began to worsen. CT showed diverticulitis with abscess and she was admitted and CT guided drain was placed by IR Dr. Caro with successful placement and drainage of copious brown foul smelling fluid. Her symptoms improved with this. She was treated with IV zosyn. Her wbc trended down and the NED drain eventually had no output for [address] was done that showed resolution of the abscess. She thus had catheter pulled on 03/06/17 without complications. THe culture showed enterococcus and E. coli. The E. coli was pansensitive. The enterococcus still has sensitivities to penicillins pending and only has sensitivities available to vanc, dapto, and linezolid which it is sensitive to all. THus at time of discharge she was discharged on linezolid and will stay off her prozac until abx coarse is complete. Given she was worsening on the augmentin despite the culture sensitivities given likely polymicrobial infection she is discharged to complete the coarse on levaquin and flagyl as well for gram negative and anaerobic coverage. Dr. Bartolo Esteban from surgery followed the patient throughout the hospitalization and will plan to have f/u colonoscopy with him and further discussion on if further intervention is necessary. She did have colonoscopy with Dr. Ortiz on 06/2016. she does have history of heavy alcohol use but had no symptoms of withdrawal during the stay. She did have low K and low mag that were replaced po and IV successfully. - Vitals & Intake/Output Vital Signs: Vital Signs Temperature 98.4 F 03/06/17 11:30 Pulse Rate 74 03/06/17 11:30 Respiratory Rate 16 03/06/17 11:30 Blood Pressure 103/64 03/06/17 11:30 O2 Sat by Pulse Oximetry 93 L 03/06/17 11:30 Intake & Output: Intake & Output 03/04/17 03/05/17 03/06/17 03/07/17 11:59 11:59 11:59 11:59 Intake Total 3638 3162 1262 240 Output Total 5 10 400 Balance 3633 3152 292 240 Weight 56.699 kg - Lab Result Diagrams: 03/06/17 05:15 03/06/17 05:15 Lab Results-Last 24 Hrs: Lab Results-Last 24 Hours 03/06/17 03/06/17 03/06/17 Range/Units 01:19 05:15 05:15 WBC 7.1 (4.0-10.5) K/mm3 RBC 3.16 L (4.1-5.4) M/mm3 Hgb 10.3 L (12.0-16.0) gm/dl Hct 31.7 L (35-47) % MCV 100.3 H (78-100) fl MCH 32.5 H (26-32) pg MCHC 32.5 (32-36) g/dl RDW 11.4 L (11.5-14.0) % Plt Count 554 H (150-450) K/mm3 MPV 10.0 H (6-9.5) fl Segmented Neutrophils 74 H (36.0-66.0) % Lymphocytes (Manual) 19 L (24-44) % Monocytes (Manual) 7 (0.0-12.0) % Differential Comment ABNORMAL Platelet Estimate INCREASED (NORMAL) Poikilocytosis 1+ Anisocytosis 1+ Sodium 134 L (136-145) mEq/L Potassium 4.8 (3.5-5.1) mEq/L Chloride 102 (98-107) mEq/L Carbon Dioxide 29.4 (21-32) mEq/L Anion Gap 7.6 (5-15) MEQ/L BUN 1 L (9-20) mg/dL Creatinine 0.54 L (0.55-1.30) mg/dl Estimated GFR > 60 ML/MIN Glucose 104 (70-110) MG/DL Calcium 8.6 (8.5-10.1) mg/dL Magnesium 1.8 (1.8-2.4) mg/dL Stl C. diff Tox B Gene NEGATIVE (NEGATIVE) C.difficile [id number] PRESUMPTIVE NEGATIVE (NEGATIVE) Micro Results-Entire Visit: Microbiology 03/02/17 16:00 Abscess Culture - Final Buttock - Left Lower Escherichia Coli Enterococcus Faecalis - Radiology Exams Ordered Rad Exams-Entire Visit: Radiology Procedures Category Date Time Status ABDOMEN AND PELVIS W CONTRAST [CT] Urgent Exams 03/06/17 06:00 Completed - Procedures and Test Procedures and Tests throughout Hospitalization: Therapy Orders & Screens 03/02/17 13:45 Smoking Cessation Education Comment: Diagnosis: DIVERTICULITIS AND ABSCESS Smoking Status: Current every day smoker How long have you smoked: 30 YEARS Have you smoked in the past 12 months: Yes Approximately how many cigarettes per day: 1 PACK Do you dip or chew tobacco: No Discharge Exam General Appearance: no apparent distress, alert Neurologic Exam: alert, oriented x 3, cooperative, normal mood/affect, nml cerebellar function, sensation nml, No motor deficits Skin Exam: normal color, warm, dry Eye Exam: PERRL, EOMI, eyes nml inspection Ears, Nose, Throat Exam: normal ENT inspection, pharynx normal, moist mucous membranes Neck Exam: normal inspection, non-tender, supple, full range of motion Respiratory Exam: normal breath sounds, lungs clear, No respiratory distress Cardiovascular Exam: regular rate/rhythm, normal heart sounds Gastrointestinal/Abdomen Exam: soft, No tenderness, No mass Extremity Exam: normal inspection, normal range of motion Back Exam: normal inspection, normal range of motion, No CVA tenderness, No vertebral tenderness Pelvic Exam: deferred Rectal Exam: deferred Final Diagnosis/Problem List - Final Discharge Diagnosis/Problem (1) Diverticulitis of large intestine with abscess Status: Acute (2) Hypokalemia Status: Acute (3) Hypertension Status: Acute (4) Hypomagnesemia Status: Acute - Discharge Discharge Date: 03/06/17 Disposition: Home, Self-Care Condition: Stable Prescriptions: New Metronidazole 500 mg [Flagyl 500 MG] 500 mg PO TID #30 tablet Levofloxacin [Levofloxacin 500 MG Tablet] 500 mg PO DAILY #10 tablet Linezolid 600 mg PO BID #28 tablet Discontinued Fluoxetine HCl [Prozac] 20 mg PO DAILY Lisinopril 5 mg PO DAILY Instructions: Diverticulitis Follow up with: KRISSY DOWNEY [Primary Care Provider] - 03/13/17 10:00 am Forms: Patient Portal Information
== END 2017-03-06 15:30 | disposition home or self-care (01) | DRG 392 ==
LOC: MED SURG 12:44 → OBSVTOIN 03-03 10:51
PROVIDERS: ADMIT Family Medicine; ATTEND Family Medicine
DX: K57.20 Diverticulitis of large intestine with perforation and abscess without bleeding (principal); E87.6 Hypokalemia; I10 Essential (primary) hypertension; E83.42 Hypomagnesemia; R91.1 Solitary pulmonary nodule; Z72.0 Tobacco use
CPT/HCPCS: 36415; 49405; 74177; 80048; 80053; 81002; 83735; 84132; 85025; 85027; 87070; 87077; 87186; 87493; G0378; J2270; J2543; J3475; J3480; A9270-GY

== ENCOUNTER 2019-11-27 06:26 | Day surgery (SDC) | payer OTHER ==
--- NOTE | 2019-11-20 14:25 | HP ---
AMENDED REPORT: DATE OF SURGERY: 11/27/2019 HISTORY OF PRESENT ILLNESS: The patient presented to the office after a follow up CT scan. He reports that she has been having some left lower quadrant pain off and on for the past three years. She states that her last colonoscopy was in [address] Ortiz. She had some colon polyps. She was in the hospital at that time. She had a colon abscess. She had this CT scan recently due to the ongoing chronic pain. She also incidentally states that she had some milky discharge from the vagina this happened back in September. It is not an ongoing thing. She did have a recent CT scan that showed some abnormality. PAST MEDICAL HISTORY: None. PAST SURGICAL HISTORY: Uterine ablation. ALLERGIES: NKDA. MEDICATIONS: None. FAMILY HISTORY: Mother had non-Hodgkin's lymphoma. Grandfather had colon cancer. SOCIAL HISTORY: Smokes a pack a day. Reports drinking a 12 pack of beer weekly. REVIEW OF SYSTEMS: CONSTITUTIONAL: No fever or chills. CHEST: Denies shortness of breath. CVS: Denies chest pain. ABDOMEN: Denies nausea, vomiting, diarrhea, constipation or rectal bleeding. Reports left lower quadrant pain. : Denies dysuria or hematuria. PHYSICAL EXAMINATION: GENERAL: No acute distress. CHEST: Nonlabored. No shortness of breath. CVS: Regular rate and rhythm. ABDOMEN: Soft, nontender to palpation. EXTREMITIES: No edema. NEUROLOGIC: Alert. PSYCHIATRIC: Appropriate. IMPRESSION: Abnormal CT scan and abnormal discharge from the vagina. She has had a recent CT scan that had shown a majority of the sigmoid colon some circumferential wall thickening and stranding and some intraluminal narrowing. She also had a recent barium enema that was unable to flow past the splenic flexure. There was an abrupt narrowing shown in the sigmoid colon. PLAN: Colonoscopy and vaginoscopy to look for possible fistula with Dr. Bry Esteban. As dictated by aDi Joseph NP.
[~2019-11-27 06:26] MED LIST: DIPRIVAN 200 MG/20 ML IV ONE; Ketamine HCl 50 MG/ML ONE
[2019-11-27] MEDS ORDERED: Lactated Ringers 1,000 ML IV SCH (07:00)
[2019-11-27 09:25] VITALS: O2SAT 100
[2019-11-27 09:50] VITALS: BP 143/97; PULSE 74
--- NOTE | 2019-11-27 10:06 | OP ---
SURGERY DATE/TIME: 11/27/2019829 PREOPERATIVE DIAGNOSIS: Previous limited colonoscopic examination with persistent symptoms, left lower quadrant pain and vaginal mucous. POSTOPERATIVE DIAGNOSIS: Normal vaginoscopy. There might be an old tenaculum site anteriorly with slight irritation but no suggestion of any fistula. The cervix and cervical os are normal. The immediate rim around the cervix is totally normal. PROCEDURE: Colonoscopy. SURGEON: Bry Esteban M.D. ANESTHESIA: MAC. COMPLICATIONS: None. CONDITION: Stable. INDICATION: A patient requiring evaluation. DESCRIPTION OF PROCEDURE: Anal digital examination satisfactory. Scope only advanced 45 cm. There was a persistent large diverticula ahead of the field which was not cannulated obviously but there was such narrowing to the lateral sides at this point that there was not a real lumen. There was no exophytic tumor seen. IMPRESSION: I certainly this is severe diverticulosis with stricture. I seriously doubt it is a colon cancer with stricture although it is still not totally ruled out. The sigmoid past this has severe diverticulosis. The rectum is normal. The anus has mild hemorrhoids. The patient tolerated the procedure satisfactorily. PLAN: She is young and she has persistent left lower quadrant pain. She has not been able to be evaluated by either barium or colonoscopy. She will need surgical intervention. We will see her back in the office and schedule her for surgical intervention.
== END 2019-11-27 09:52 | disposition home or self-care (01) ==
LOC: SDC 06:26
PROVIDERS: ATTEND Surgery
DX: K57.30 Diverticulosis of large intestine without perforation or abscess without bleeding (principal); R10.32 Left lower quadrant pain; N89.8 Other specified noninflammatory disorders of vagina; Z86.010 Personal history of colon polyps; K64.9 Unspecified hemorrhoids; Z80.0 Family history of malignant neoplasm of digestive organs
CPT/HCPCS: J2704

== ENCOUNTER 2023-07-19 11:10 | Emergency (ER) | payer OTHER ==
[2023-07-19 11:30] VITALS: TEMP 97
[2023-07-19 12:01] LABS: Absolute Neutrophil Ct (ANC) 5.54 x10^3/uL (1.4-6.9); BASOPHIL % 0.7 % (0.0-0.4); Basophil (Absolute #) 0.06 x10^3/uL (0-0.4); Eosinophil % 1.7 % (0.00-5.0); Eosinophil (Absolute #) 0.14 x10^3/uL (0-0.5); Hematocrit 36.3 % (35-47); IMMATURE GRAN # 0.04 x10^3u/L (0.00-0.03); IMMATURE GRAN % 0.5 % (0.00-0.4); Lymphocyte (Absolute #) 1.61 x10^3/uL (1.0-4.6); Lymphocytes % 19.7 % (24.0-44.0); Mean Cell Volume 107.1 fL (78-100); Mean Corpuscular Hemoglobin 35.4 pg (26-32); Mean Corpuscular Hgb Concent. 33.1 g/dL (32-36); Mean Platelet Volume 9.1 fL (7.5-11.0); Monocytes % 9.8 % (0.0-12.0); Neutrophil % 67.6 % (36.0-66.0); Platelet Count 211 x10^3/uL (150-450); Red Blood Count 3.39 x10^6/uL (4.1-5.4); Red Cell Distribution Width 13.2 % (11.5-14.0); White Blood Count 8.2 x10^3/uL (4.0-10.5)
[2023-07-19 12:21] LABS: ALBUMIN 3.9 g/dL (3.5-5.0); ANION GAP 11.9 MEQ/L (5-15); BILIRUBIN,TOTAL 0.3 mg/dL (0.2-1.3); Calcium 9.1 mg/dL (8.4-10.2); Creatinine 1 0.4 mg/dL (0.52-1.04); EST GLOMERULAR FILTRATION RATE 113.9 ML/MIN; Potassium 4.8 mmol/L (3.5-5.1); Total Protein 7.8 g/dL (6.3-8.2)
[2023-07-19 12:32] LABS: Appearance Clear (Clear); Bacteria None Seen /HPF (None Seen); Bilirubin Negative (Negative); Blood Trace (Negative); Epithelial Cells None Seen /HPF (None Seen); Glucose, Urine Negative (Negative); Hyaline Casts NONE SEEN /LPF (0-2); Ketones Negative (Negative); Leukocyte Esterase Large (Negative); Nitrite Negative (Negative); Ph 5.5 (4.6-8.0); Protein,Urine Dip Negative (Negative); Urobilinogen 0.2 mg/dL (0.2); WBC >100 /HPF (0-5)
[2023-07-19 12:33] LABS: ADD URINE CULTURE? YES (NO)
--- NOTE | 2023-07-19 12:49 | XRAY ---
Indication: Right chest pain. 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 Status post chemotherapy, radiation therapy, and immunotherapy. Multiple contiguous axial images obtained through the chest without contrast. Comparison: December 07, 2022 Posterior right lower lobe again demonstrates large pleural-based malignant mass, minimally smaller again demonstrating posterior chest wall invasion with osseous destructive process posterior 7-10 ribs. Right lower lobe also demonstrates new moderate atelectasis and new moderate right effusion. Remaining lungs unchanged again with mild diffuse pulmonary emphysema, tiny benign right upper lobe noncalcified micronodule, and small medial right lower lobe calcified granuloma. Heart not enlarged with new small pericardial effusion/thickening. Stable left Port-A-Cath. Aorta again minimally arteriosclerotic without aneurysm. No pathologic mediastinal lymphadenopathy. Remaining bony thorax intact. Visualized spine demonstrates multilevel mottled lytic appearance favoring known bony metastasis. CT abdomen/pelvis reported separately. Impression: 1. Again large posterior right lower lobe pleural based malignant mass with chest wall invasion/osseous destructive process. New right lower lobe atelectasis and right effusion. 2. New pericardial effusion/thickening. 3. Known bony metastasis.
--- NOTE | 2023-07-19 12:57 | XRAY ---
Indication: Right upper quadrant pain. 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 Status post chemotherapy, radiation therapy, and immunotherapy. Multiple contiguous axial images obtained through the abdomen and pelvis without contrast. Comparison: December 07, 2022 CT chest reported separately. Noncontrasted stomach and bowel loops appear nonobstructed. Several small bowel loops are again mildly fluid distended with circumferential wall thickening favoring enteritis. Again minimal sigmoid diverticulosis. Sigmoid colon again suggests bowel wall thickening with minimal pericolonic stranding favoring diverticulitis. No free fluid/air. Remaining liver, gallbladder, pancreas, spleen, adrenal glands, kidneys, ureters, bladder, and uterus are unremarkable for noncontrast exam. Stable mild scattered aortoiliac calcifications without AAA. Osseous structures again demonstrates mild dextroscoliosis and lumbosacral junction degenerative disc disease. Stable multilevel lumbosacral modeled appearance again favoring clinically reported bony metastasis. Impression: 1. Again mild fluid distended small bowel loops with circumferential wall thickening. Rule out enteritis. Also stable sigmoid diverticulosis with bowel wall thickening and stranding. Rule out diverticulitis. 2. Grossly stable axial spine bony metastasis. 3. Chronic arteriosclerotic disease.
[2023-07-19] MEDS ORDERED: ROCEPHIN 2 GM/100 ML NACL 2 GM/100 ML IVPB IV ONE (13:37)
[2023-07-19] MEDS: ROCEPHIN 2 GM/100 ML NACL 2 GM/100 ML IVPB IV ONE (13:42)
[2023-07-19 13:51] VITALS: BP 131/91; PULSE 83; RESP 13; O2SAT 96
--- NOTE | 2023-07-19 14:24 | ERPHSYRPT ---
- History of Present Illness Time Seen by Provider: 07/19/23 11:32 Historian: patient Exam Limitations: no limitations Patient Subjective Stated Complaint: pt here for right rib pain for a couple days.she had a recent hosptial stay with a chest tube due to a collapsed lung from a thoracentesis. pt has lung ca to right lower lobe and had radiation and chemo Triage Nursing Assessment: pt alert, walked in, resp easy, no cough, no fever, skin w/d/p. has port a cath to left side of chest. no edema noted. moves all ext well Physician History: 58-year-old female with history of metastatic lung cancer status post chemo and radiation with recent paracentesis and pneumothorax needing chest intubation which was removed almost 10 days ago presented in the ER for the last few days increasing pain right lower rib cage and right upper abdomen. Patient reports it hurts to move/palpation. She is worried about having another episode of pneumothorax or worsening of pleural effusion. She has shortness of breath at her baseline which is not any worse than usual. She is on room air around 96%. Denies any left-sided chest pain. No nausea or vomiting reported. Does report having some element of constipation which is relieved today. Denies any fever or chills. Aspirin Treatment Today: unknown Allergies/Adverse Reactions: No Known Drug Allergies Allergy (Verified 07/19/23 11:16) Hx Tetanus, Diphtheria Vaccination/Date Given: No Hx Influenza Vaccination/Date Given: No Hx Pneumococcal Vaccination/Date Given: No Immunizations Up to Date: Yes Travel Risk - International Travel Have you traveled outside of the country in past 3 weeks: No - Emerging Infectious Disease Are you exhibiting symptoms associated with any current EIDs: No - Review of Systems Constitutional: No Symptoms Eyes: No Symptoms Ears, Nose, & Throat: No Symptoms Respiratory: Cough Cardiac: Chest Pain Abdominal/Gastrointestinal: Abdominal Pain Genitourinary Symptoms: No Symptoms Musculoskeletal: Arthralgias, Back Pain Skin: No Symptoms Psychological: Anxiety Endocrine: No Symptoms Hematologic/Lymphatic: No Symptoms Immunological/Allergic: No Symptoms - Past Medical History Pertinent Past Medical History: Yes Neurological History: No Pertinent History ENT History: No Pertinent History Cardiac History: Hypertension Respiratory History: No Pertinent History, Lung Cancer Endocrine Medical History: No Pertinent History Musculoskeletal History: No Pertinent History GI Medical History: Diverticulosis History: No Pertinent History Psycho-Social History: Depression Female Reproductive Disorders: Abnormal Uterine Bleeding Other Medical History: pt states She was in the hospital in may and was told she has diverticulitis with a small abscess. in [place], recent lung collapse on right side 2023. - Past Surgical History Past Surgical History: Yes Neuro Surgical History: No Pertinent History Cardiac: No Pertinent History Respiratory: No Pertinent History Gastrointestinal: Other Genitourinary: No Pertinent History Musculoskeletal: Other Female Surgical History: Dilation & Curettage Other Surgical History: mandible surgery, uterine ablation, chest tube 2023 Significant Family History: other (mother with lymphoma) - Social History Smoking Status: Current some day smoker How long have you smoked: 30 YEARS Exposure to second hand smoke: No Drug Use: none - Nursing Vital Signs Nursing Vital Signs: Initial Vital Signs Pulse Rate 88 07/19/23 11:12 Respiratory Rate 17 07/19/23 11:12 Blood Pressure 183/96 07/19/23 11:12 O2 Sat by Pulse Oximetry 97 07/19/23 11:12 Pain Scale Pain Intensity 4 - Physical Exam General Appearance: no apparent distress, alert Eye Exam: PERRL/EOMI Ears, Nose, Throat Exam: normal ENT inspection Neck Exam: normal inspection, non-tender, supple, full range of motion Respiratory Exam: chest tenderness (Right lower ankle lateral and posterior chest wall with no crepitus.), diminished breath sounds, crackles/rales Cardiovascular Exam: regular rate/rhythm, normal heart sounds Gastrointestinal/Abdomen Exam: soft, normal bowel sounds, tenderness (Right upper quadrant) Back Exam: normal inspection, normal range of motion Extremity Exam: normal inspection, normal range of motion Neurologic Exam: alert, oriented x 3, cooperative Skin Exam: normal color SpO2 Interpretation: normal SpO2: 96 O2 Delivery: Room Air - Course EKG Interpreted by Me: RATE (94), Sinus Rhythm, NORMAL AXIS, NORMAL INTERVALS, NORMAL QRS Ordered Tests: Active Orders 24 hr Category Date Time Status ABDOMEN AND PELVIS W/0 CONTRAS [CT] Stat Exams 07/19/23 11:33 Completed CHEST WITHOUT CONTRAST [CT] Stat Exams 07/19/23 11:33 Completed CBC W DIFF Stat Lab 07/19/23 11:55 Completed CMP Stat Lab 07/19/23 11:55 Completed CULTURE,URINE Stat Lab 07/19/23 12:15 Received LIPASE Stat Lab 07/19/23 11:55 Completed TROPONIN Q4H Lab 07/19/23 11:55 Completed TROPONIN Q4H Lab 07/19/23 15:45 Ordered TROPONIN Q4H Lab 07/19/23 19:45 Ordered UA W/RFX UR CULTURE Stat Lab 07/19/23 12:15 Completed Medication Summary Discontinued Medications Generic Name Dose Route Start Last Admin Trade Name Freq PRN Reason Stop Dose Admin Ceftriaxone Sodium 2 gm in 100 mls @ 200 mls/hr 07/19/23 13:34 07/19/23 13:42 Rocephin 2 Gm/100 Ml Nacl IV 07/19/23 14:03 200 ml/hr STAT ONE 200 mls/hr Administration Ceftriaxone Sodium Confirm 07/19/23 13:37 Rocephin 2 Gm/100 Ml Nacl Administered 07/19/23 13:38 Dose 2 gm in 100 mls @ ud IV .STK-MED ONE Lab/Rad Data: Laboratory Result Diagrams 07/19/23 11:55 07/19/23 11:55 Laboratory Results 07/19/23 07/19/23 07/19/23 Range/Units 12:15 11:55 11:55 WBC (4.0-10.5) x10^3/uL RBC (4.1-5.4) x10^6/uL Hgb (12.0-16.0) g/dL Hct (35-47) % MCV (78-100) fL MCH (26-32) pg MCHC (32-36) g/dL RDW (11.5-14.0) % Plt Count (150-450) x10^3/uL MPV (7.5-11.0) fL Gran % (36.0-66.0) % Immature Gran % (Auto) (0.00-0.4) % Nucleat RBC Rel Count (0.00-0.1) % Eos # (Auto) (0-0.5) x10^3/uL Immature Gran # (Auto) (0.00-0.03) x10^3u/L Absolute Lymphs (auto) (1.0-4.6) x10^3/uL Absolute Monos (auto) (0.0-1.3) x10^3/uL Absolute Nucleated RBC (0.00-0.01) x10^3u/L Lymphocytes % (24.0-44.0) % Monocytes % (0.0-12.0) % Eosinophils % (0.00-5.0) % Basophils % (0.0-0.4) % Absolute Granulocytes (1.4-6.9) x10^3/uL Basophils # (0-0.4) x10^3/uL Sodium 134 L (135-145) mmol/L Potassium 4.8 (3.5-5.1) mmol/L Chloride 101 (98-107) mmol/L Carbon Dioxide 26 (22-30) mmol/L Anion Gap 11.9 (5-15) MEQ/L BUN 18 H (7-17) mg/dL Creatinine 0.40 L (0.52-1.04) mg/dL Estimated GFR 113.9 ML/MIN Glucose 115 H (74-106) mg/dL Calcium 9.1 (8.4-10.2) mg/dL Total Bilirubin 0.30 (0.2-1.3) mg/dL AST 18 (14-36) U/L ALT 8 (0-35) U/L Alkaline Phosphatase 123 (38-126) U/L Troponin I < 0.012 (0.000-0.033) ng/mL Serum Total Protein 7.8 (6.3-8.2) g/dL Albumin 3.9 (3.5-5.0) g/dL Lipase 363 H (23-300) U/L Urine Color Yellow (Yellow) Urine Appearance Clear (Clear) Urine pH 5.5 (4.6-8.0) Ur Specific [place] 1.020 (1.005-1.030) Urine Protein Negative (Negative) Urine Glucose (UA) Negative (Negative) mg/dL Urine Ketones Negative (Negative) Urine Blood Trace (Negative) Urine Nitrite Negative (Negative) Urine Bilirubin Negative (Negative) Urine Urobilinogen 0.2 (0.2) mg/dL Ur Leukocyte Esterase Large A (Negative) U Hyaline Cast (Auto) NONE SEEN (0-2) /LPF Urine Microscopic RBC 3-5 (0-5) /HPF Urine Microscopic WBC >100 A (0-5) /HPF Ur Epithelial Cells None Seen (None Seen) /HPF Urine Bacteria None Seen (None Seen) /HPF Urine Culture Reflexed YES (NO) 07/19/23 Range/Units 11:55 WBC 8.2 (4.0-10.5) x10^3/uL RBC 3.39 L (4.1-5.4) x10^6/uL Hgb 12.0 (12.0-16.0) g/dL Hct 36.3 (35-47) % MCV 107.1 H (78-100) fL MCH 35.4 H (26-32) pg MCHC 33.1 (32-36) g/dL RDW 13.2 (11.5-14.0) % Plt Count 211 (150-450) x10^3/uL MPV 9.1 (7.5-11.0) fL Gran % 67.6 H (36.0-66.0) % Immature Gran % (Auto) 0.5 H (0.00-0.4) % Nucleat RBC Rel Count 0.0 (0.00-0.1) % Eos # (Auto) 0.14 (0-0.5) x10^3/uL Immature Gran # (Auto) 0.04 H (0.00-0.03) x10^3u/L Absolute Lymphs (auto) 1.61 (1.0-4.6) x10^3/uL Absolute Monos (auto) 0.80 (0.0-1.3) x10^3/uL Absolute Nucleated RBC 0.00 (0.00-0.01) x10^3u/L Lymphocytes % 19.7 L (24.0-44.0) % Monocytes % 9.8 (0.0-12.0) % Eosinophils % 1.7 (0.00-5.0) % Basophils % 0.7 (0.0-0.4) % Absolute Granulocytes 5.54 (1.4-6.9) x10^3/uL Basophils # 0.06 (0-0.4) x10^3/uL Sodium (135-145) mmol/L Potassium (3.5-5.1) mmol/L Chloride (98-107) mmol/L Carbon Dioxide (22-30) mmol/L Anion Gap (5-15) MEQ/L BUN (7-17) mg/dL Creatinine (0.52-1.04) mg/dL Estimated GFR ML/MIN Glucose (74-106) mg/dL Calcium (8.4-10.2) mg/dL Total Bilirubin (0.2-1.3) mg/dL AST (14-36) U/L ALT (0-35) U/L Alkaline Phosphatase (38-126) U/L Troponin I (0.000-0.033) ng/mL Serum Total Protein (6.3-8.2) g/dL Albumin (3.5-5.0) g/dL Lipase (23-300) U/L Urine Color (Yellow) Urine Appearance (Clear) Urine pH (4.6-8.0) Ur Specific [place] (1.005-1.030) Urine Protein (Negative) Urine Glucose (UA) (Negative) mg/dL Urine Ketones (Negative) Urine Blood (Negative) Urine Nitrite (Negative) Urine Bilirubin (Negative) Urine Urobilinogen (0.2) mg/dL Ur Leukocyte Esterase (Negative) U Hyaline Cast (Auto) (0-2) /LPF Urine Microscopic RBC (0-5) /HPF Urine Microscopic WBC (0-5) /HPF Ur Epithelial Cells (None Seen) /HPF Urine Bacteria (None Seen) /HPF Urine Culture Reflexed (NO) - Progress Progress: improved, re-examined Air Movement: good Progress Note: 07/19/23 14:22 58-year-old is evaluated for right lower chest wall and upper abdominal pain. She recently has paracentesis done with accidental pneumothorax needing chest intubation. Patient denies any fever or chills. Has chronic shortness of breath which is not any worse than usual. Pain is reproducible with palpation and movements. She is offered pain medication which she declined. EKG is normal sinus rhythm with no acute ischemic changes. Normal white count, fairly unremarkable chemistries except for lipase of 360s which is minimally above the normal limit of 300. She has no abdominal tenderness in the left lower quadrant. She has no diarrhea. I have obtained CT chest and abdomen pelvis which showed right sided lung mass with some effusion and mild pericardial effusion along with bone mets. Did not show any pancreatitis. Questionable enteritis and diverticulitis but patient does not have any tenderness. She does have UTI and given a dose of Rocephin. She does not have any obvious pneumonia. No pneumothorax. I believe she is having pain because of scar tissue in the mass and also adhesions to the/involvement of chest wall. She has bony mets which she is aware of. Recommended continue with outpatient follow- up with her primary care/pulmonology/oncology. I do not think patient needs any other workup and can be discharged on oral antibiotics for UTI. Discussed signs symptoms of worsening needing return to ER which she seems understanding. 07/19/23 14:26 Blood Culture(s) Obtained: No Antibiotics given: No Counseled pt/family regarding: lab results, diagnosis, need for follow-up, rad results Medical Desision Making - Independent Historian Additional History obtained from: Spouse - Diagnostic Testing Diagnostic test were ordered, analyzed, and reviewed by me: Yes Radiological Interpretation: Reviewed by me - Risk of complications The pt has a mod risk of morbidity or mortality based on: Need for prescription drug management - Departure Departure Disposition: Home Clinical Impression: Acute UTI (urinary tract infection), Mass of right lung, Pleural effusion, Up per abdominal pain Condition: Stable Critical Care Time: No Referrals: JOSHUA OROZCO NP [Primary Care Provider] - Follow up with PCP 1 day Instructions: Pleural Effusion (DC) Additional Instructions: Follow-up with your primary care/pulmonology/oncology for reevaluation. Continue with antibiotics for UTI. Return to ER for any worsening. Prescriptions: Cefpodoxime Proxetil 200 mg [Vantin 200 mg] 200 mg PO BID 7 Days #14 tablet
== END 2023-07-19 14:40 | disposition home or self-care (01) ==
LOC: ED 11:10
DX: N39.0 Urinary tract infection, site not specified (principal); R07.81 Pleurodynia; R91.8 Other nonspecific abnormal finding of lung field; J90 Pleural effusion, not elsewhere classified; F17.200 Nicotine dependence, unspecified, uncomplicated; R10.11 Right upper quadrant pain; Z85.118 Personal history of other malignant neoplasm of bronchus and lung
CPT/HCPCS: 36415; 71250; 74176; 80053; 81001; 83690; 84484; 85025; 87077; 87086; 87186; 96365; 99284; J0696; J1642

== ENCOUNTER 2024-02-21 07:44 | Day surgery (SDC) | payer OTHER ==
--- NOTE | 2024-02-20 13:33 | HP ---
HISTORY OF PRESENT ILLNESS: Patient is a 58-year-old female who presents with an abnormal CAT scan with some rectosigmoid thickening. She has been on some chemo and immunotherapy for some lung cancer. Patient had a severe diverticulosis with stricture in 2019. We tried to scope her and we could not get through. She had some polyps in the past. She ended up having CAT scan. She denies any trouble passing any stool. PAST MEDICAL HISTORY: Lung cancer, diverticulosis, diverticulitis. HOME MEDICATIONS: Multivitamin. ALLERGIES: Negative. PAST SURGICAL HISTORY: Thoracentesis. SOCIAL HISTORY: Occasional alcohol. FAMILY HISTORY: Cancer unspecified. REVIEW OF SYSTEMS: CONSTITUTIONAL: Denies fever or chills. CHEST: Denies shortness of breath. CARDIOVASCULAR: Denies chest pain. ABDOMEN: Denies abdominal pain. PHYSICAL EXAMINATION: GENERAL: No acute distress. CARDIOVASCULAR: Regular rate and rhythm. RESPIRATORY: Nonlabored. No shortness of breath. ABDOMEN: Soft. ASSESSMENT: Abnormal CAT scan, rectosigmoid thickening. PLAN: Colonoscopy with Dr. Bry Esteban.
[2024-02-21 08:41] LABS: Absolute Neutrophil Ct (ANC) 6.52 x10^3/uL (1.56-6.13); BASOPHIL % 0.5 % (0.1-1.2); Basophil (Absolute #) 0.04 x10^3/uL (0.01-0.08); Eosinophil % 1.3 % (0.7-5.8); Eosinophil (Absolute #) 0.11 x10^3/uL (0.04-0.36); Hematocrit 42.9 % (34.1-44.9); Hemoglobin 14.6 g/dL (11.2-15.7); IMMATURE GRAN # 0.02 x10^3u/L (0.001-0.031); IMMATURE GRAN % 0.2 % (0.001-0.429); Lymphocyte (Absolute #) 1.09 x10^3/uL (1.18-3.74); Lymphocytes % 12.5 % (19.3-51.7); Mean Cell Volume 102.1 fL (79.4-94.8); Mean Corpuscular Hemoglobin 34.8 pg (25.6-32.2); Monocyte (Absolute #) 0.96 x10^3/uL (0.24-0.86); Neutrophil % 74.5 % (34.0-71.1); Platelet Count 198 x10^3/uL (182-369); Red Cell Distribution Width 12.7 % (11.7-14.4); White Blood Count 8.7 x10^3/uL (3.98-10.04)
[2024-02-21] MEDS: Sodium Chloride 0.9% 10 ML FLUSH Syringe PORT FLUSH PRN (08:41)
[2024-02-21 08:42] VITALS: RESP 18
[2024-02-21 08:55] LABS: ANION GAP 10.2 MEQ/L (5-15); Creatinine 1 0.54 mg/dL (0.52-1.04); Potassium 3.9 mmol/L (3.5-5.1)
[2024-02-21] MEDS ORDERED: DIPRIVAN 200 MG/20 ML IV ONE (09:48)
[2024-02-21] MEDS ORDERED: GlucaGen 1 MG ONE (10:06)
[2024-02-21] MEDS ORDERED: PHENYLEPHRINE HCL ONE (10:12)
[2024-02-21 10:21] VITALS: TEMP 98.6
[2024-02-21 10:30] VITALS: O2SAT 98
[2024-02-21 10:32] VITALS: BP 114/89; PULSE 96
--- NOTE | 2024-02-25 08:51 | OP ---
SURGERY DATE/TIME: 02/21/2024 [id number] PREOPERATIVE DIAGNOSIS: Patient has an area of thickening on CT scan in the rectosigmoid. POSTOPERATIVE DIAGNOSIS: Patient has an area of thickening on CT scan in the rectosigmoid. SURGEON: Bry Esteban MD DESCRIPTION OF PROCEDURE AND FINDINGS: She was brought to endoscopy today for an endoscopic exam. She has not had a recent colonoscopic examination. Left lateral decubitus position. MAC general. Anal digital examination seems quite indurated just right down here at the anorectal area. I did not see anything specific about it but the anus was pretty snug. With care and patience, it does allow the fingertip of the finger. The scope was then induced. The rectum is navigable. There is nothing mucosally visible. Rectal sigmoid junction cannulated and the first 2 turns are taken for the distance of about 10 cm and, at this point, that third turn cannot be navigated today. We tried about 3 different positions. We kept very, very graceful. Endoscopically, basically it was obstructed. I think barium would go through this. She has nobody with her. I think at this point we will see her back in the office and talk about options, probably schedule a barium enema as an outpatient to evaluate this area but I think we probably at least ought to discuss that with her and not try to get that post-sedation without a discussion.
== END 2024-02-21 10:44 | disposition home or self-care (01) ==
LOC: SDC 07:44
PROVIDERS: ATTEND Surgery
DX: R93.3 Abnormal findings on diagnostic imaging of other parts of digestive tract (principal); Z85.118 Personal history of other malignant neoplasm of bronchus and lung
CPT/HCPCS: 36415; 80048; 85025; J1610; J1642; J2371; J2704